=== PATIENT | female | born 1970 | race Caucasian/White ===

== ENCOUNTER 2020-05-12 11:10 | Emergency (ER) | payer OTHER ==
[~2020-05-12] VITALS: Ht 172.7 cm; Wt 66.7 kg
[2020-05-12] MEDS ORDERED: NORFLEX100MG PO (14:42)
[2020-05-12] MEDS ORDERED: MEDROLPACK PO (14:42)
[2020-05-12] MEDS ORDERED: KETO10TA2 PO (14:42)
== END 2020-05-12 14:51 | disposition home or self-care (01) ==
LOC: ER 11:10
DX: M54.5 Low back pain (principal); M54.2 Cervicalgia

== ENCOUNTER 2020-06-01 23:20 | Emergency (ER) | payer OTHER ==
[~2020-06-01] VITALS: Ht 172.7 cm; Wt 65.8 kg
[~2020-06-01 23:20] MED LIST: KETO10TA2 PO; MEDROLPACK PO; NORFLEX100MG PO
[2020-06-02] MEDS ORDERED: DOLOGESIC-DF 51 EACH PO (00:36)
[2020-06-02] MEDS ORDERED: CYCLOBENZAPRINE10 MG PO (00:36)
== END 2020-06-02 00:45 ==
LOC: ER 23:20
DX: M54.89 Other dorsalgia (principal)

== ENCOUNTER 2020-06-10 11:47 | Inpatient (IN) | payer OTHER ==
[~2020-06-10] VITALS: Ht 172.7 cm; Wt 65.3 kg
[~2020-06-10 11:47] MED LIST changes: +CYCLOBENZAPRINE10 MG PO; +DOLOGESIC-DF 51 EACH PO
[2020-06-10] MEDS ORDERED: TYLENOL ARTHRI650 MG (12:50)
[2020-06-16] MEDS ORDERED: NABUMETONE750 MG (14:04)
[2020-06-17] MEDS ORDERED: SPIRONOLACTONE50 MG PO (11:41)
[2020-06-17] MEDS ORDERED: LASIX20 MG PO (11:41)
[2020-06-17] MEDS ORDERED: PERCOCET 5-3251 EACH PO (11:41)
== END 2020-06-17 12:30 | disposition home or self-care (01) | DRG 375 ==
LOC: ER 11:47 → SURH 18:32
PROVIDERS: ADMIT Internal Medicine; ATTEND Internal Medicine
PROC: 30233N1 Transfusion of Nonautologous Red Blood Cells into Peripheral Vein, Percutaneous Approach (ICD-10-PCS; 2020-06-10)
PROC: 3E0F7SF Introduction of Other Gas into Respiratory Tract, Via Natural or Artificial Opening (ICD-10-PCS; 2020-06-10)
PROC: BW21ZZZ Computerized Tomography (CT Scan) of Abdomen and Pelvis (ICD-10-PCS; 2020-06-10)
PROC: 0W9G3ZX Drainage of Peritoneal Cavity, Percutaneous Approach, Diagnostic (ICD-10-PCS; principal; 2020-06-12)
PROC: BW2110Z Computerized Tomography (CT Scan) of Abdomen and Pelvis using Low Osmolar Contrast, Unenhanced and Enhanced (ICD-10-PCS; 2020-06-13)
PROC: 0W993ZX Drainage of Right Pleural Cavity, Percutaneous Approach, Diagnostic (ICD-10-PCS; 2020-06-14)
PROC: 0W9B3ZZ Drainage of Left Pleural Cavity, Percutaneous Approach (ICD-10-PCS; 2020-06-16)
DX: C78.6 Secondary malignant neoplasm of retroperitoneum and peritoneum (principal); C78.2 Secondary malignant neoplasm of pleura; C18.9 Malignant neoplasm of colon, unspecified; J90 Pleural effusion, not elsewhere classified; R18.8 Other ascites; D62 Acute posthemorrhagic anemia; D63.0 Anemia in neoplastic disease; Z20.822 Contact with and (suspected) exposure to COVID-19

== ENCOUNTER 2020-08-04 14:56 | Inpatient (IN) | payer OTHER ==
[~2020-08-04] VITALS: Ht 172.7 cm; Wt 66.2 kg
[~2020-08-04 14:56] MED LIST changes: +LASIX20 MG PO; +NABUMETONE750 MG; +PERCOCET 5-3251 EACH PO; +SPIRONOLACTONE50 MG PO; +TYLENOL ARTHRI650 MG
== END 2020-08-05 08:11 | disposition expired | DRG 374 ==
LOC: MEDI 14:56
PROVIDERS: ADMIT Internal Medicine Hematology & Oncology; ATTEND Internal Medicine Hematology & Oncology
PROC: 0W9G3ZZ Drainage of Peritoneal Cavity, Percutaneous Approach (ICD-10-PCS; principal; 2020-08-05)
DX: C18.7 Malignant neoplasm of sigmoid colon (principal); J96.00 Acute respiratory failure, unspecified whether with hypoxia or hypercapnia; R18.0 Malignant ascites; G93.49 Other encephalopathy; J91.0 Malignant pleural effusion; C77.2 Secondary and unspecified malignant neoplasm of intra-abdominal lymph nodes; C78.7 Secondary malignant neoplasm of liver and intrahepatic bile duct; C79.82 Secondary malignant neoplasm of genital organs; Z66 Do not resuscitate
CPT/HCPCS: 240